=== PATIENT | male | born 1965 | race Caucasian/White ===

== ENCOUNTER 2019-01-05 21:38 | Inpatient (IN) | payer OTHER ==
[~2019-01-05] VITALS: Ht 195.6 cm; Wt 96.0 kg
[2019-01-05 21:48] VITALS: Ht 195.6 cm; Wt 96.0 kg
[2019-01-05 22:38] LABS: BASOPHIL % 0.8 % (0-2); PLATELET COUNT 276 x10^3mcL (130-400)
[2019-01-05 22:40] LABS: CALCIUM 8.8 mg/dL (8.5-10.1); CARBON DIOXIDE 16.9 mmol/L (21-32); CREATININE SERUM 2.1 mg/dL (0.7-1.3); POTASSIUM SERUM 3.3 mmol/L (3.5-5.1)
[2019-01-05 22:44] LABS: BILIRUBIN TOTAL 0.3 mg/dL (0.20-1.00); TOTAL PROTEIN, SERUM 6.5 g/dL (6.4-8.2)
[2019-01-05 22:55] LABS: RED CELL DISTRIBUTION WIDTH 14.9 % (11.5-14.5)
[2019-01-06] MEDS ORDERED: SEROQUEL400 M1 PO (01:13)
[2019-01-06] MEDS ORDERED: REM15 PO (01:13)
[2019-01-06] MEDS ORDERED: LYRICA300 MG PO (01:13)
[2019-01-06 01:16] LABS: MAGNESIUM 2.2 mg/dL (1.8-2.4); PHOSPHOROUS 4.9 mg/dL (2.5-4.9)
[2019-01-06 01:32] LABS: FREE T4 0.63 ng/dL (0.76-1.46); FREE THYROXINE INDEX 0.9 ug/dL (1.4-4.5); T4(THYROXINE) 2.9 ug/dL (4.7-13.3)
[2019-01-06 01:44] LABS: T3 TOTAL 0.9 ng/mL
[2019-01-06 01:58] VITALS: BP 115/74
[2019-01-06 06:27] LABS: BASOPHIL % 0.6 % (0-2); PLATELET COUNT 244 x10^3mcL (130-400)
[2019-01-06 06:55] LABS: CALCIUM 8.3 mg/dL (8.5-10.1); CARBON DIOXIDE 21.1 mmol/L (21-32); CREATININE SERUM 1.7 mg/dL (0.7-1.3); POTASSIUM SERUM 3.6 mmol/L (3.5-5.1)
[2019-01-06 07:27] LABS: RED CELL DISTRIBUTION WIDTH 14.9 % (11.5-14.5)
[2019-01-06 10:16] VITALS: BP 120/77
[2019-01-06 11:49] LABS: UA SPECIFIC GRAVITY >=1.030 (1.005-1.035)
[2019-01-06 11:50] LABS: microscopic required? YES; urine erythrocyte NEGATIVE (NEGATIVE)
[2019-01-06 11:52] LABS: AMPHETAMINE QUAL UR NONE DETECTED (See below)
[2019-01-06 13:53] VITALS: BP 118/64
[2019-01-06 16:48] VITALS: BP 127/72
[2019-01-06 21:41] VITALS: BP 124/74
[2019-01-07 06:09] VITALS: BP 111/80
[2019-01-07 07:09] LABS: CALCIUM 8.5 mg/dL (8.5-10.1); CARBON DIOXIDE 21.5 mmol/L (21-32); CHLORIDE SERUM 110 mmol/L (98-107); CREATININE SERUM 1.3 mg/dL (0.7-1.3); GFR1 > 60 mL/min; GLUCOSE SERUM 88 mg/dL (74-106); POTASSIUM SERUM 4.3 mmol/L (3.5-5.1); SODIUM SERUM 141 mmol/L (136-145)
[2019-01-07 07:12] LABS: BASOPHIL % 1.3 % (0-2); PLATELET COUNT 252 x10^3mcL (130-400)
[2019-01-07 08:05] LABS: RED CELL DISTRIBUTION WIDTH 15.8 % (11.5-14.5)
[2019-01-07 09:18] VITALS: BP 113/69
[2019-01-07 12:53] VITALS: BP 114/82
[2019-01-07 18:00] VITALS: BP 143/85
[2019-01-07 20:41] VITALS: BP 129/77
[2019-01-08 06:01] VITALS: BP 105/79
[2019-01-08 15:50] VITALS: BP 136/82
[2019-01-08 19:49] VITALS: BP 139/87
[2019-01-09 04:43] VITALS: BP 124/82
[2019-01-09 09:38] VITALS: BP 120/84
[2019-01-09 14:09] VITALS: BP 150/96
[2019-01-09 19:25] VITALS: BP 159/95
[2019-01-10 05:29] VITALS: BP 124/85
[2019-01-10 07:29] LABS: BASOPHIL % 0.9 % (0-2); PLATELET COUNT 251 x10^3mcL (130-400)
[2019-01-10 07:32] LABS: RED CELL DISTRIBUTION WIDTH 14.8 % (11.5-14.5)
[2019-01-10 07:41] LABS: CALCIUM 9.6 mg/dL (8.5-10.1); CARBON DIOXIDE 23.6 mmol/L (21-32); CHLORIDE SERUM 106 mmol/L (98-107); CREATININE SERUM 1.2 mg/dL (0.7-1.3); GFR1 > 60 mL/min; GLUCOSE SERUM 108 mg/dL (74-106); POTASSIUM SERUM 4.6 mmol/L (3.5-5.1); SODIUM SERUM 143 mmol/L (136-145)
[2019-01-10 12:32] VITALS: BP 13/84
[2019-01-10 17:10] VITALS: BP 156/96
[2019-01-10 22:55] VITALS: BP 147/99
[2019-01-11 05:31] VITALS: BP 103/71
[2019-01-11 09:16] VITALS: BP 156/89
[2019-01-11 12:32] VITALS: BP 104/72
[2019-01-11 18:45] VITALS: BP 113/82
[2019-01-11 21:48] VITALS: BP 106/75
[2019-01-12 06:02] VITALS: BP 103/65
[2019-01-12 06:58] LABS: BASOPHIL % 0.9 % (0-2); PLATELET COUNT 242 x10^3mcL (130-400); RED CELL DISTRIBUTION WIDTH 15.4 % (11.5-14.5)
[2019-01-12 07:02] LABS: CALCIUM 9.2 mg/dL (8.5-10.1); CARBON DIOXIDE 25.1 mmol/L (21-32); CHLORIDE SERUM 105 mmol/L (98-107); CREATININE SERUM 1.2 mg/dL (0.7-1.3); GFR1 > 60 mL/min; GLUCOSE SERUM 115 mg/dL (74-106); POTASSIUM SERUM 4.4 mmol/L (3.5-5.1); SODIUM SERUM 141 mmol/L (136-145)
[2019-01-12 09:17] VITALS: BP 101/64
[2019-01-12 13:01] VITALS: BP 102/72
[2019-01-12 18:10] VITALS: BP 122/77
[2019-01-12 20:45] VITALS: BP 127/79
[2019-01-13 06:11] VITALS: BP 110/78
[2019-01-13 08:18] VITALS: BP 119/84
[2019-01-13 15:46] VITALS: BP 115/82
[2019-01-13 20:47] VITALS: BP 123/82
[2019-01-14 05:53] VITALS: BP 139/91
[2019-01-14 22:37] VITALS: BP 106/72
[2019-01-15 06:33] VITALS: BP 114/71
[2019-01-15 09:20] VITALS: BP 98/64
[2019-01-15 15:05] VITALS: BP 111/66
[2019-01-15 21:19] VITALS: BP 109/72
[2019-01-16 05:53] VITALS: BP 105/61
[2019-01-16 09:07] VITALS: BP 106/68
[2019-01-16 18:38] VITALS: BP 119/74
[2019-01-16 21:25] VITALS: BP 114/76
[2019-01-17 05:23] VITALS: BP 117/69
[2019-01-17 07:21] LABS: CALCIUM 8.9 mg/dL (8.5-10.1); CARBON DIOXIDE 27.8 mmol/L (21-32); CHLORIDE SERUM 109 mmol/L (98-107); CREATININE SERUM 1.2 mg/dL (0.7-1.3); GFR1 > 60 mL/min; GLUCOSE SERUM 101 mg/dL (74-106); POTASSIUM SERUM 4.2 mmol/L (3.5-5.1); SODIUM SERUM 144 mmol/L (136-145)
[2019-01-17 07:39] LABS: BASOPHIL % 1.1 % (0-2); PLATELET COUNT 243 x10^3mcL (130-400); RED CELL DISTRIBUTION WIDTH 15.2 % (11.5-14.5)
[2019-01-17 08:14] VITALS: BP 154/93
[2019-01-17 16:05] VITALS: BP 123/70
[2019-01-17 21:13] VITALS: BP 115/81
[2019-01-18 05:58] VITALS: BP 108/74
[2019-01-18 06:23] LABS: CARBON DIOXIDE 26.7 mmol/L (21-32); CHLORIDE SERUM 108 mmol/L (98-107); CREATININE SERUM 1.1 mg/dL (0.7-1.3); GFR1 > 60 mL/min; GLUCOSE SERUM 103 mg/dL (74-106); MAGNESIUM 1.9 mg/dL (1.8-2.4); POTASSIUM SERUM 4.5 mmol/L (3.5-5.1); SODIUM SERUM 143 mmol/L (136-145)
[2019-01-18 06:29] LABS: BASOPHIL % 1.5 % (0-2); PLATELET COUNT 245 x10^3mcL (130-400); RED CELL DISTRIBUTION WIDTH 15.1 % (11.5-14.5)
[2019-01-18 09:32] VITALS: BP 104/64
[2019-01-18 13:28] VITALS: BP 126/86
[2019-01-18 18:02] VITALS: BP 116/71
[2019-01-18 21:10] VITALS: BP 121/80
[2019-01-19 05:50] VITALS: BP 111/74
[2019-01-19 10:00] VITALS: BP 107/68
[2019-01-19 17:46] VITALS: BP 114/82
[2019-01-19 21:01] VITALS: BP 134/80
[2019-01-20 05:21] VITALS: BP 110/65
[2019-01-20 09:55] VITALS: BP 103/73
[2019-01-20 16:31] VITALS: BP 120/81
[2019-01-20 21:56] VITALS: BP 111/69
[2019-01-21 05:50] VITALS: BP 107/66
[2019-01-21 08:49] VITALS: BP 95/63
[2019-01-21 21:21] VITALS: BP 115/82
[2019-01-22 05:42] VITALS: BP 111/64
[2019-01-22 08:59] VITALS: BP 104/67
[2019-01-22 15:59] VITALS: BP 111/76
[2019-01-22 21:44] VITALS: BP 104/64
[2019-01-23 05:21] VITALS: BP 98/62
[2019-01-23 09:52] VITALS: BP 104/70
[2019-01-23 17:49] VITALS: BP 110/71
[2019-01-24 05:45] VITALS: BP 106/64
[2019-01-24 08:15] VITALS: BP 96/58
[2019-01-24 13:14] VITALS: BP 106/69
[2019-01-24 16:25] VITALS: BP 112/65
[2019-01-24 19:12] VITALS: BP 106/64
[2019-01-25 04:58] VITALS: BP 114/76
[2019-01-25 08:12] VITALS: BP 94/60
[2019-01-25 18:35] VITALS: BP 121/76
[2019-01-25 21:33] VITALS: BP 104/74
[2019-01-26 06:29] VITALS: BP 98/62
[2019-01-26 10:01] VITALS: BP 92/60
[2019-01-26 14:08] VITALS: BP 92/60
== END 2019-01-26 16:19 | disposition home or self-care (01) | DRG 53 ==
LOC: ED 21:38 → DU 01-06 00:13 → MU 01-06 00:13 → DU 01-06 01:33 → MU 01-12 15:43
PROVIDERS: Emergency Medicine; Family Medicine; ADMIT Internal Medicine
DX: R56.9 Unspecified convulsions (principal); N17.0 Acute kidney failure with tubular necrosis; F31.4 Bipolar disorder, current episode depressed, severe, without psychotic features; R45.851 Suicidal ideations; K21.9 Gastro-esophageal reflux disease without esophagitis; E44.0 Moderate protein-calorie malnutrition; E87.6 Hypokalemia; F10.230 Alcohol dependence with withdrawal, uncomplicated; T51.0X1A Toxic effect of ethanol, accidental (unintentional), initial encounter; Y90.0 Blood alcohol level of less than 20 mg/100 ml; Z59.0 Homelessness; Z68.23 Body mass index [BMI] 23.0-23.9, adult; Z88.8 Allergy status to other drugs, medicaments and biological substances
CPT/HCPCS: 84439; G0480; J1885; J2405; J7030; Q0092